=== PATIENT | male | born 1945 | race Caucasian/White ===

== ENCOUNTER 2022-09-09 11:42 | Outpatient (CLI) | payer MEDICARE ==
[~2022-09-09 11:42] MED LIST: AMLO1TAB13 PO; METO-357 PO; NYST15CR TP; SIMV5TAB59 PO
== END 2022-09-09 23:59 | disposition home or self-care (01) ==
LOC: LAB 11:42
PROVIDERS: ATTEND Student in an Organized Health Care Education/Training Program
DX: Z75.3 Unavailability and inaccessibility of health-care facilities (principal)

== ENCOUNTER 2022-09-14 10:24 | Day surgery (SDC) | payer MEDICARE ==
[~2022-09-14 10:24] MED LIST changes: +ANESTHESIA TRAY IN PYXIS 1 EA TRAY MC ONE; +BUPIVACAINE 0.5 % PF 150 MG/30 ML VIAL ONE; +EPINEPHRINE (1:1000) 1 MG/ML AMPUL ONE
[2022-09-14] MEDS ORDERED: MIDAZOLAM HCL 2 MG/2ML VIAL ONE (11:13)
[2022-09-14] MEDS ORDERED: FENTANYL PF 100MCG/2ML AMPUL ONE (11:13)
[2022-09-14] MEDS ORDERED: LIDOCAINE 1%-EPI 1:100,000 20 ML VIAL ONE (11:13)
[2022-09-14] MEDS ORDERED: oxyCODONE/APAP (5/325 MG) 1 UDTAB TABLET PO PRN (16:30)
== END 2022-09-14 17:30 | disposition home or self-care (01) ==
LOC: DS 10:24 → EDSTATUS 11:13 → DS 17:30
PROVIDERS: ATTEND Student in an Organized Health Care Education/Training Program
DX: M75.102 Unspecified rotator cuff tear or rupture of left shoulder, not specified as traumatic (principal); M65.812 Other synovitis and tenosynovitis, left shoulder; E11.22 Type 2 diabetes mellitus with diabetic chronic kidney disease; I12.9 Hypertensive chronic kidney disease with stage 1 through stage 4 chronic kidney disease, or unspecified chronic kidney disease; N18.9 Chronic kidney disease, unspecified; E78.5 Hyperlipidemia, unspecified; G47.30 Sleep apnea, unspecified; Z85.46 Personal history of malignant neoplasm of prostate; Z98.49 Cataract extraction status, unspecified eye; Z98.890 Other specified postprocedural states; Z79.899 Other long term (current) drug therapy
CPT/HCPCS: 29827; 82962; 29823; J0690; J3490 ×3; J1100; J2704; J0171; J3010; J1885; J2405; J7030; J2250; A6253; A4217; A6402; C9803

== ENCOUNTER 2022-12-14 05:50 | Day surgery (SDC) | payer MEDICARE ==
[2022-12-14] VITALS (9 sets, daily range): BP systolic 104–130; BP diastolic 67–75; TEMP 97.2–98.5; O2SAT 90–95
[~2022-12-14] VITALS: Ht 190.5 cm; Wt 96.2 kg
[~2022-12-14 05:50] MED LIST changes: -ANESTHESIA TRAY IN PYXIS 1 EA TRAY MC ONE; -BUPIVACAINE 0.5 % PF 150 MG/30 ML VIAL ONE; -EPINEPHRINE (1:1000) 1 MG/ML AMPUL ONE
[2022-12-14] MEDS ORDERED: TRANEXAMIC ACID 1,000 MG/10 ML VIAL ONE ×2 (07:29→08:14)
[2022-12-14] MEDS ORDERED: MIDAZOLAM HCL 2 MG/2ML VIAL ONE (07:33)
[2022-12-14] MEDS ORDERED: FENTANYL PF 250MCG/5ML AMPUL ONE (07:33)
[2022-12-14] MEDS ORDERED: FAMOTIDINE/PF INJ 20 MG/2 ML VIAL IV ONE (07:33)
[2022-12-14] MEDS ORDERED: ROPIVACAINE HCL 0.5% 5 MG/ML 30ML VIAL ONE (08:14)
[2022-12-14] MEDS ORDERED: BUPIVACAINE 0.5 % PF 150 MG/30 ML VIAL ONE (08:14)
[2022-12-14] MEDS ORDERED: oxyCODONE/APAP (5/325 MG) 1 UDTAB TABLET PO PRN (10:30)
== END 2022-12-14 15:55 | disposition home or self-care (01) ==
LOC: DS 05:50 → MED 05:54 → DS 15:55
PROVIDERS: ATTEND Student in an Organized Health Care Education/Training Program
DX: M12.812 Other specific arthropathies, not elsewhere classified, left shoulder (principal); I10 Essential (primary) hypertension; E78.5 Hyperlipidemia, unspecified; J45.909 Unspecified asthma, uncomplicated; K21.9 Gastro-esophageal reflux disease without esophagitis; N40.0 Benign prostatic hyperplasia without lower urinary tract symptoms; F41.9 Anxiety disorder, unspecified; Z98.890 Other specified postprocedural states; Z79.899 Other long term (current) drug therapy
CPT/HCPCS: 23472; 88305; 88311; J0690; J1100; J2704; J2371; J3490 ×2; J2765; J2405; J7030; J2250; A4217; J3010; C1776; C1713; G0378; J2370; J2795